=== PATIENT | female | born 1990 | race Caucasian/White ===

== ENCOUNTER 2020-09-26 14:27 | Outpatient (REF) | payer BC, SELFPAY ==
[2020-09-26 16:34] LABS: MANUAL DIFF FLAG NO
[2020-09-26 16:39] LABS: Basophils Absolute Auto 0.1 X10*3/uL (0.0-0.2); Basophils Percent Auto 0.7 % (0-2); Eosinophils Absolute Auto 0.2 X10*3/uL (0.0-0.4); Eosinophils Percent Auto 2.3 % (0-4); Hematocrit 43.6 % (37-47); Hemoglobin 14.7 g/dl (12.0-16.0); Imm Gran Abs Auto 0.03 X10*3/uL (0.00-0.03); Imm Gran Pct Auto 0.3 % (0.0-0.4); Lymphocytes Absolute Auto 2.9 X10*3/uL (1.2-4.9); Lymphocytes Percent Auto 33.6 % (20-40); Mean Corpuscular HGB Conc 33.7 g/dl (31.0-35.0); Mean Corpuscular Hemoglobin 30.8 pg (27.0-33.0); Mean Corpuscular Volume 91.4 fL (80-98); Mean Platelet Volume 9.5 fL (9.4-12.3); Monocytes Absolute Auto 0.5 X10*3/uL (0.1-1.2); Neutrophils Absolute Auto 4.9 X10*3/uL (2.0-8.3); Neutrophils Percent Auto 57.1 % (45-73); Platelet Count 324 X10*3/uL (160-400); Red Blood Count 4.77 X10*6/uL (4.20-5.50); Red Cell Distribution Width 12.3 % (11.0-16.0); White Blood Count 8.6 X10*3/uL (4.8-10.8)
[2020-09-26 17:07] LABS: Alanine Aminotransferase 19 U/L (0-31); Albumin Level 4.8 g/dL (3.5-5.0); Alkaline Phosphatase 79 U/L (39-117); Anion Gap 14 (12-20); Aspartate Amino Transferase 17 U/L (5-31); Bilirubin Total 0.3 mg/dL (0.0-1.0); Blood Urea Nitrogen 9 mg/dL (9-16); Calcium 9.5 mg/dL (8.4-10.2); Carbon Dioxide 26 mmol/L (22-29); Chloride 105 mmol/L (96-108); Cholesterol 156 mg/dL; Estimated Glomerular Filt Rate > 60; Glucose Random 77 mg/dL (60-115); HDL Cholesterol 47 mg/dL; LDL Cholesterol Calculated 84 mg/dl; Potassium 4.6 mmol/L (3.3-5.1); Sodium 140 mmol/L (135-145); Total Protein 7.6 g/dL (6.5-8.0); Triglycerides 128 mg/dL
[2020-09-26 17:27] LABS: Thyroid Stimulating Hormone 3.23 uIU/mL (0.32-4.0); Vitamin D 25-OH Total 15.9 ng/mL (>30)
== END 2020-09-26 14:28 | disposition home or self-care (01) ==
LOC: HO.HMGCLDS 14:27
PROVIDERS: PCP Internal Medicine; Visit Provider Psychiatry & Neurology Psychiatry
DX: Z79.899 Other long term (current) drug therapy (principal)
CPT/HCPCS: 36415; 80053; 80061; 82306; 84443; 85025

== ENCOUNTER 2020-10-03 12:04 | Emergency (ER) | payer BC, SELFPAY ==
--- NOTE | ~2020-10-03 | XR_ITS ---
EXAMINATION: XR CHEST CLINICAL INFORMATION: Chest pain COMPARISON: Chest radiographs 04/07/2016, 08/05/2013 TECHNIQUE: 2 views of the chest were obtained. FINDINGS: The lungs are clear. There is no pneumothorax, pleural reaction, infiltrate, or effusion. The heart is normal in size and the hilar and mediastinal contours are normal. No acute bony abnormality. No free air beneath the diaphragms or subcutaneous emphysema. XR/XR chest 2V IMPRESSION: Unremarkable examination.
--- NOTE | 2020-10-03 12:07 | ECG_ITS ---
Test Reason : CHEST PAIN Blood Pressure : / mmHG Vent. Rate : 079 BPM Atrial Rate : 079 BPM P-R Int : 136 ms QRS Dur : 080 ms QT Int : 398 ms P-R-T Axes : 059 062 053 degrees QTc Int : 456 ms Normal sinus rhythm with sinus arrhythmia Normal ECG When compared with ECG of 27-JUL-2019 13:44, No significant change was found Referred By: Generic ED Physician Electronically Signed By:JOSE ORONA MD
[2020-10-03 13:08] VITALS: BP 120/62; PULSE 67; RESP 18; TEMP 36.9; O2SAT 97; BMI 33.3
[2020-10-03 14:58] LABS: MANUAL DIFF FLAG NO
[2020-10-03 14:59] LABS: Basophils Absolute Auto 0.1 X10*3/uL (0.0-0.2); Basophils Percent Auto 0.5 % (0-2); Eosinophils Absolute Auto 0.2 X10*3/uL (0.0-0.4); Eosinophils Percent Auto 1.8 % (0-4); Hematocrit 42.2 % (37-47); Hemoglobin 14.2 g/dl (12.0-16.0); Imm Gran Abs Auto 0.02 X10*3/uL (0.00-0.03); Imm Gran Pct Auto 0.2 % (0.0-0.4); Mean Corpuscular HGB Conc 33.6 g/dl (31.0-35.0); Mean Corpuscular Hemoglobin 30.6 pg (27.0-33.0); Mean Corpuscular Volume 90.9 fL (80-98); Mean Platelet Volume 8.9 fL (9.4-12.3); Monocytes Absolute Auto 0.6 X10*3/uL (0.1-1.2); Monocytes Percent Auto 5.9 % (2-11); Neutrophils Absolute Auto 5.5 X10*3/uL (2.0-8.3); Neutrophils Percent Auto 59.6 % (45-73); Platelet Count 308 X10*3/uL (160-400); Red Blood Count 4.64 X10*6/uL (4.20-5.50); Red Cell Distribution Width 12.4 % (11.0-16.0); White Blood Count 9.3 X10*3/uL (4.8-10.8)
[2020-10-03 15:19] LABS: Anion Gap 13 (12-20); Blood Urea Nitrogen 8 mg/dL (9-16); Calcium 9.3 mg/dL (8.4-10.2); Carbon Dioxide 27 mmol/L (22-29); Chloride 106 mmol/L (96-108); Creatinine Clr Calc Pharmacy 116.9; Estimated Glomerular Filt Rate > 60; Glucose Random 83 mg/dL (60-115); Potassium 4.6 mmol/L (3.3-5.1); Sodium 141 mmol/L (135-145)
[2020-10-03 15:26] LABS: Troponin-I High Sensitivity < 3.5 ng/L (<3.5-17.0)
[2020-10-03 16:39] VITALS: BP 130/74; PULSE 66; RESP 20; O2SAT 99
--- NOTE | 2020-10-03 17:12 | ED_ITS ---
HPI - Chest Pain General Chief Complaint: Chest Pain Stated Complaint: chest pain Time Seen by Provider: 10/03/20 13:04 Source: patient Mode of arrival: ambulatory Limitations: no limitations History of Present Illness HPI narrative: 30-year-old female with a past medical history of auto immune deficiency syndrome, alopecia, shingles, hypertension, PTSD, depression and anxiety presenting to the ED with complaints of chest tightness with associated nausea that started approximately 09:00 while she was at work at [employer] sitting at her desk. Reports that she has been stressed out a little more than lately. Denies any SI/HI/auditory visualizations thoughts of self-injury. 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 Denies any other symptoms complaints or concerns at this time. Patient denies any drug usage including cocaine. MD complaint: chest discomfort Onset (ago): hour(s) (Started at 09:00 this morning while she was at work) Timing of current episode: constant and still present Prior episodes: No Onset: during rest Pain location: substernal and left chest Pain radiation: left arm Quality: tightness Relieving factors: nothing Exacerbating factors: nothing Associated symptoms: nausea Treatment prior to arrival: none Risk Factors Coronary artery disease risk factors: none Thoracic aortic dissection risk factors: none Related Data On Oral Contraceptives: Yes (On the Nexplanon) Previous Rx's Medication Instructions Recorded diazepam [Valium] 5 mg PO TID PRN #14 tab 10/03/20 naproxen 500 mg PO BID PRN #10 tab 10/03/20 Allergies Allergy/AdvReac Type Severity Reaction Status Date / Time mold Allergy Unknown UNKNOWN Verified 10/03/20 13:08 pollen extracts [POLLEN] Allergy Unknown UNKNOWN Verified 10/03/20 13:08 DANDER Allergy Unknown UNKNOWN Uncoded 02/04/20 16:33 DUST Allergy Unknown unknown Uncoded 02/04/20 16:33 Review of Systems Review of Systems: Constitutional : No Weight loss, No Fever, No Chills, No Night Sweats, No Fatigue, No Malaise ENT/Mouth : No Hearing loss, No Ear Pain, No Nasal Congestion, No Sinus Pain, No Hoarseness, No sore throat, No Rhinorrhea, No Swallowing Difficulty Eyes: No Eye Pain, No Swelling, No Redness, No Foreign Body, No Discharge, No Vision Changes Cardiovascular : Positive chest pain, No SOB, no Dyspnea on Exertion, No Orthopnea, No Edema, No extremity swelling, No Palpitations Respiratory : No Cough, No Sputum, No Wheezing, No Dyspnea Gastrointestinal : Positive Nausea, No Vomiting, No Diarrhea, No abdominal Pain, No Hematochezia, No Melena Genitourinary : No irregular bleeding, No Dysuria, No Urinary Frequency, No Hematuria, No Urinary Incontinence, No Urgency, No Flank Pain, No Urinary Flow Changes, No Hesitancy Musculoskeletal : No joint pain, No Myalgias, No Joint Swelling Skin : No Skin Lesions, No rash Neuro : Positive paresthesia to left arm, No Weakness, No Numbness, No Loss of Consciousness, No Dizziness, No Headache Psych : Positive anxiety, No Panic, No Depression, No SI/HI/AH/VH Heme/Lymph: No Bruising, No Bleeding,No Lymphadenopathy Endocrine : No Polyuria, No Polydipsia, No Temperature Intolerance Yes all other systems are reviewed and are negative [facility] Past Medical History Attestation statement: The following information was validated with the patient. Medical History Alopecia Anxiety Autoimmune deficiency syndrome Depression Fractured coccyx HTN (hypertension) Patient denies medical problems Pneumonia PTSD (post-traumatic stress disorder) Shingles Social History Social History Alcohol intake: never Smoking Status: Current every day smoker Use of substances other than those prescribed or required for medical reasons: No Substance Use Type: Marijuana Advance Directives: No Advance Directives Information Provided: Yes Patient : No Physical Exam Vital Signs: Vital Signs: Last Vital Signs Temp 98.5 F 10/03/20 13:08 Pulse 66 10/03/20 16:39 Resp 20 10/03/20 16:39 BP 130/74 10/03/20 16:39 Pulse Ox 99 10/03/20 16:39 Body Mass Index 33.3 vital signs have been reviewed as normal and appeared to be correct. Blood pressure normal. Heart rate normal. Respiration rate normal. Temperature normal. Oxygen saturation normal. Appearance: Alert. Oriented X3. No acute distress. Head: Normal external exam. Normocephalic. Atraumatic. No Mitchell signs noted. No raccoon eyes noted Eyes: PERRLA. EOMI. Conjunctiva and sclera normal. Eyelids normal. ENT: EAC normal. TM's Normal. Pharynx normal. Uvula midline. Moist mucous membranes. No trismus noted. No drooling noted. No muffled voice noted. Neck: Normal inspection. Neck supple. FROM. No adenopathy. Thyroid Normal. No meningeal signs. No neck mass noted. CVS: Normal heart rate and rhythm. Heart sound normal. No murmurs noted. Pulses normal throughout. Respiratory: No respiratory distress. Painless inspiration. Breath sounds normal. No wheezes/rales/rhonchi noted. Chest nontender. No accessory muscle usage noted or decreased air movement noted. Abdomen: Soft and nontender. Bowel sounds normal in all 4 quadrants. No distention noted. No organomegaly noted. No visible injury noted. Back: No CVA tenderness. Full range of motion noted. Skin: Skin warm and dry. Normal skin color. Normal skin turgor. No rashes/lesions/lacerations noted. Extremities: No lower extremity edema. Extremities exhibit normal range of motion. Extremities nontender. Neuro: Oriented X 3. No motor deficit. No sensory deficit. Reflexes normal. Course Course Course Narrative: 30-year-old female with a past medical history of auto immune deficiency syndrome, alopecia, shingles, hypertension, PTSD, depression and anxiety presenting to the ED with complaints of chest tightness with associated nausea that started approximately 09:00 while she was at work at [employer] sitting at her desk. Reports that she has been stressed out a little more than lately. Denies any SI/HI/auditory visualizations thoughts of self-injury. - labs obtained and all within normal limits including troponin. Chest x-ray within normal limits no acute processes noted. EKG is normal sinus rhythm with sinus arrhythmia with ventricular rate of 79 with normal OR interval normal QRS duration normal QT/QTC interval. No acute ischemic changes are noted. Similar compared to prior EKG on 07/27/2019. - patient most likely anxiety/atypical chest pain due to recent stressors and she works at [employer]. Perc negative. No family history of sudden CO or before the age of 40 or 50. - will DC home with symptomatic treatment instructions return if any new or worsening symptoms to follow up with primary care provider. Patient understands agrees with this plan. MDM - Chest Pain Medical Records Data Attestation: I reviewed the patient's medical records. Lab Data Attestation: I reviewed the patient's lab results. Result diagrams: 10/03/20 14:52 10/03/20 14:52 Labs: Lab Results 10/03/20 10/03/20 10/03/20 Range/Units 14:52 14:52 14:52 WBC 9.3 (4.8-10.8) X10*3/uL RBC 4.64 (4.20-5.50) X10*6/uL Hgb 14.2 (12.0-16.0) g/dl Hct 42.2 (37-47) % MCV 90.9 (80-98) fL MCH 30.6 (27.0-33.0) pg MCHC 33.6 (31.0-35.0) g/dl RDW 12.4 (11.0-16.0) % Plt Count 308 (160-400) X10*3/uL MPV 8.9 L (9.4-12.3) fL Immature Gran % (Auto) 0.2 (0.0-0.4) % Neut % (Auto) 59.6 (45-73) % Lymph % (Auto) 32.0 (20-40) % [place] % (Auto) 5.9 (2-11) % Eos % (Auto) 1.8 (0-4) % Baso % (Auto) 0.5 (0-2) % Lymph # (Auto) 3.0 (1.2-4.9) X10*3/uL [place] # (Auto) 0.6 (0.1-1.2) X10*3/uL Eos # (Auto) 0.2 (0.0-0.4) X10*3/uL Baso # (Auto) 0.1 (0.0-0.2) X10*3/uL Abs Immat Gran (auto) 0.02 (0.00-0.03) X10*3/uL Absolute Neuts (auto) 5.5 (2.0-8.3) X10*3/uL Absolute Nucleated RBC 0.000 (0.0-0.012) X10*3/uL Nucleated RBC % (auto) 0.0 (0.0-0.2) /100WBC Hold Blue Top SEE NOTE Sodium 141 (135-145) mmol/L Potassium 4.6 (3.3-5.1) mmol/L Chloride 106 (96-108) mmol/L Carbon Dioxide 27 (22-29) mmol/L Anion Gap 13 (12-20) BUN 8 L (9-16) mg/dL Creatinine 0.79 (0.5-1.4) mg/dL Estim Creat Clear Calc 116.9 Estimated GFR > 60 Random Glucose 83 (60-115) mg/dL Calcium 9.3 (8.4-10.2) mg/dL Troponin I High Sens (<3.5-17.0) ng/L 10/03/20 Range/Units 14:52 WBC (4.8-10.8) X10*3/uL RBC (4.20-5.50) X10*6/uL Hgb (12.0-16.0) g/dl Hct (37-47) % MCV (80-98) fL MCH (27.0-33.0) pg MCHC (31.0-35.0) g/dl RDW (11.0-16.0) % Plt Count (160-400) X10*3/uL MPV (9.4-12.3) fL Immature Gran % (Auto) (0.0-0.4) % Neut % (Auto) (45-73) % Lymph % (Auto) (20-40) % [place] % (Auto) (2-11) % Eos % (Auto) (0-4) % Baso % (Auto) (0-2) % Lymph # (Auto) (1.2-4.9) X10*3/uL [place] # (Auto) (0.1-1.2) X10*3/uL Eos # (Auto) (0.0-0.4) X10*3/uL Baso # (Auto) (0.0-0.2) X10*3/uL Abs Immat Gran (auto) (0.00-0.03) X10*3/uL Absolute Neuts (auto) (2.0-8.3) X10*3/uL Absolute Nucleated RBC (0.0-0.012) X10*3/uL Nucleated RBC % (auto) (0.0-0.2) /100WBC Hold Blue Top Sodium (135-145) mmol/L Potassium (3.3-5.1) mmol/L Chloride (96-108) mmol/L Carbon Dioxide (22-29) mmol/L Anion Gap (12-20) BUN (9-16) mg/dL Creatinine (0.5-1.4) mg/dL Estim Creat Clear Calc Estimated GFR Random Glucose (60-115) mg/dL Calcium (8.4-10.2) mg/dL Troponin I High Sens < 3.5 (<3.5-17.0) ng/L Imaging Data Chest x-ray: Attestation: I personally reviewed and interpreted this imaging study as follows: Radiologist's impression: FINDINGS: The lungs are clear. There is no pneumothorax, pleural reaction, infiltrate, or effusion. The heart is normal in size and the hilar and mediastinal contours are normal. No acute bony abnormality. No free air beneath the diaphragms or subcutaneous emphysema. XR/XR chest 2V IMPRESSION: Unremarkable examination. ECG Data ECG #1: Attestation: I personally reviewed and interpreted this ECG as follows: ECG interpretation date: 10/03/20 ECG interpretation time: 12:30 Interpretation: EKG is normal sinus rhythm with sinus arrhythmia with ventricular rate of 79 with normal OR interval normal QRS duration normal QT/QTC interval. No acute ischemic changes are noted. Similar compared to prior EKG on 07/27/2019. Scores Heart Score History: -0- slightly suspicious ECG: -0- normal Age: -0- < or = 45 Risk factory: -0- no risk factors known Troponin: -0- < or = normal limit Score: 0 Risk: 1.7% Discharge Plan Discharge Clinical Impression: Atypical chest pain Patient Disposition: Home, Self-Care Instructions: Chest Pain (ED) Prescriptions: New naproxen 500 mg tablet 500 mg PO BID PRN (Reason: pain) Qty: 10 RF: 0 diazepam [Valium] 5 mg tablet 5 mg PO TID PRN (Reason: muscle spasm) Qty: 14 RF: 0 Referrals: Rachel Leung MD [Primary Care Provider] - 2 days Stand Alone Forms: Work/School Release Print Language: Thai
[2020-10-03 18:34] LABS: HCG Quantitative < 2 mIU/mL
== END 2020-10-03 17:29 | disposition home or self-care (01) ==
PROVIDERS: Physician Assistant Medical; Emergency Provider Emergency Medicine Emergency Medical Services; PCP Internal Medicine
DX: R07.89 Other chest pain (principal); I10 Essential (primary) hypertension; F43.10 Post-traumatic stress disorder, unspecified; F32.9 Major depressive disorder, single episode, unspecified; F41.9 Anxiety disorder, unspecified; F17.200 Nicotine dependence, unspecified, uncomplicated; F12.90 Cannabis use, unspecified, uncomplicated
CPT/HCPCS: 36415; 71046; 80048; 84484; 84702; 85025; 93005; 99283; 99284

== ENCOUNTER 2021-05-22 11:26 | Outpatient (REF) | payer BC, SELFPAY ==
[2021-05-22 12:55] LABS: Binax Internal Control QC Valid; Binax Lot number: 9864; Binax Now Covid-19 Ag Negative (Negative)
== END 2021-05-22 11:27 | disposition home or self-care (01) ==
LOC: HO.LAB 11:26
PROVIDERS: Visit Provider Internal Medicine
DX: Z20.822 Contact with and (suspected) exposure to COVID-19 (principal)
CPT/HCPCS: 36415; C9803

== ENCOUNTER 2022-05-09 08:25 | Outpatient (REF) | payer BC, SELFPAY ==
[2022-05-09 11:42] LABS: Appearance Urine Clear; Color Urine Yellow; Glucose Urine UA Negative (Negative); Leukocyte Esterase Urine Negative (Negative); Nitrite Urine Negative (Negative); Urine Blood Negative (Negative); Urine Ketones Negative (Negative); Urine Protein Negative (Neg-Trace)
[2022-05-09 11:55] LABS: Alanine Aminotransferase 28 U/L (0-31); Albumin Level 4.6 g/dL (3.5-5.0); Alkaline Phosphatase 85 U/L (39-117); Anion Gap 12 (12-20); Aspartate Amino Transferase 20 U/L (5-31); Bilirubin Total 0.5 mg/dL (0.0-1.0); Blood Urea Nitrogen 14 mg/dL (9-16); Calcium 9.6 mg/dL (8.4-10.2); Carbon Dioxide 26 mmol/L (22-29); Chloride 105 mmol/L (96-108); Cholesterol 194 mg/dL; Estimated Glomerular Filt Rate > 60; Glucose Fasting 92 mg/dL (60-99); HDL Cholesterol 39 mg/dL; LDL Cholesterol Calculated 115 mg/dl; Potassium 4.5 mmol/L (3.3-5.1); Sodium 138 mmol/L (135-145); TSH reflex Free T4 4.52 uIU/mL (0.32-4.0); Total Protein 7.2 g/dL (6.5-8.0); Triglycerides 204 mg/dL
[2022-05-09 13:16] LABS: Free T4 (Free Thyroxine) 0.79 ng/dL (0.71-1.85)
[2022-05-11 05:48] LABS: HPV mRNA E6/E7 Not Detected (Not Detected)
== END 2022-05-09 08:26 | disposition home or self-care (01) ==
LOC: HO.HMGCLDS 08:25
PROVIDERS: PCP Internal Medicine; Visit Provider Internal Medicine
DX: Z00.00 Encounter for general adult medical examination without abnormal findings (principal); Z12.4 Encounter for screening for malignant neoplasm of cervix; Z11.51 Encounter for screening for human papillomavirus (HPV); F41.9 Anxiety disorder, unspecified
CPT/HCPCS: 36415; 80053; 80061; 81003; 84439; 84443; 87624; 88142

== ENCOUNTER 2022-09-24 16:28 | Outpatient (REF) | payer BC, SELFPAY ==
[2022-09-24 19:49] LABS: Free T4 (Free Thyroxine) 0.75 ng/dL (0.71-1.85)
== END 2022-09-24 16:29 | disposition home or self-care (01) ==
LOC: HO.LAB 16:28
PROVIDERS: PCP Internal Medicine; Visit Provider Internal Medicine
DX: E03.9 Hypothyroidism, unspecified (principal)
CPT/HCPCS: 36415; 84439; 84443

== ENCOUNTER 2023-02-11 16:38 | Outpatient (REF) | payer BC, SELFPAY | END 2023-02-11 16:39 | disposition home or self-care (01) | LOC: HO.LAB 16:38 | PROVIDERS: PCP Internal Medicine; Visit Provider Internal Medicine | DX: E03.9 Hypothyroidism, unspecified (principal) | CPT/HCPCS: 36415; 84443 ==

== ENCOUNTER 2023-03-06 09:02 | Outpatient (AMB) | payer BC, SELFPAY ==
--- NOTE | 2023-03-06 11:19 | MHC.OFFWIV ---
Intake Vital Signs 03/06/23 11:21 Height 5 ft 5.5 in Weight 213 lb BMI 34.9 BP 122/80 Blood Pressure Location Lt brachial Position Sitting Pulse 76 Pulse Source Pulse Oximeter Temp 98.0 F Temp Source Temporal Artery Scan Pulse Oximetry (%) 100 Oxygen Delivery Method Room Air Intake Visit Reasons: EP Cough/Inc of urine [phone] Intake Note: Pt is here c/o having a bad cough. Pt states her cough is a lot of pressure and is making her urinate and have bowel movements on herself. Patient Tobacco Use Status: Current everyday Tobacco user Allergies mold Allergy (Unknown, Verified 03/06/23 11:20) UNKNOWN pollen extracts [POLLEN] Allergy (Unknown, Verified 03/06/23 11:20) UNKNOWN DANDER Allergy (Unknown, Uncoded 03/06/23 11:20) UNKNOWN DUST Allergy (Unknown, Uncoded 03/06/23 11:20) unknown Do you need a note to return to daycare/school/sports/work: Yes HPI EP Cough/Inc of urine [phone] HPI Details 32-year-old female patient presents today with 4 days of a severe cough. She reports her mother recently had bacterial bronchitis. She reports she is coughing up yellow sputum, which has a very foul taste. Coughing fits become so severe that she has been vomiting and or urinating herself. His fever, however has been feeling hot/cold at night. [facility] Medical History Pneumonia Fractured coccyx Alopecia PTSD (post-traumatic stress disorder) HTN (hypertension) Anxiety Depression Autoimmune deficiency syndrome Shingles Social History Household Members Other:: lives with cousin, works as [employer], Housing: Apartment Alcohol intake: never Patient Tobacco Use Status: Current everyday Tobacco user Tobacco use type: Cigarette e-Cigarette/Vaping Use: Currently Using Substance Use Type: Marijuana service: No Current occupational status: employed Cognitive needs: No Hearing needs: No Vision needs: No Review of Systems Const All systems reviewed & are unremarkable except as noted in HPI and below Physical Exam Const General: cooperative and ill appearing acutely HEENT Head: Yes normal to inspection Ears: hearing grossly normal bilaterally and TM's normal bilaterally General nose exam: Normal external nose present Face and sinus: Yes normal facial exam Mouth: Normal oral and palatal mucosa present and moist mucous membranes abnormal Throat: Yes posterior oropharynx normal Neck Neck: Yes no lymphadenopathy Resp Effort & Inspection: normal respiratory effort and Actively coughing Quality: productive Auscultation: rhonchi upper bilaterally Cardio Jugular venous distension: no JVD Palpation: normal PMI Rate: regular rate Rhythm: regular rhythm Skin General skin exam: no rashes or lesions noted Extrem General: Yes capillary refill normal and Yes no clubbing, cyanosis or edema Psych Appearance: grossly normal Mental Status: mental status grossly normal Speech and movement: Normal speech and movement present Assessment & Plan Assessment & Plan (1) Acute bronchitis: Code(s): J20.9 - Acute bronchitis, unspecified Qualifiers: Bronchitis organism: unspecified organism Qualified Code(s): J20.9 - Acute bronchitis, unspecified Plan: I am going to start patient on antibiotics, and a short dose of prednisone. We reviewed indications, use, possible side effects of medications. I also prescribed her an albuterol inhaler for any shortness of breath/wheezing. If she does not improve with treatment, or symptoms worsen/new symptoms develop, she should return to the clinic. She verbalizes understanding and agrees to plan. Work note provided. Medications: New prednisone 20 mg PO BID 3 days 6 tabs 0RF azithromycin For 250 mg dose pack: take 500 mg today (day 1), then 250 mg for 4 days (days 2-5) PO 6 tabs 0RF J20.9 - Acute bronchitis, unspecified albuterol sulfate 90 mcg/actuation 1 inh inhalation QID PRN 6.7 grams 0RF shortness of breath or wheezing J20.9 - Acute bronchitis, unspecified Coding Level of Care Code Est Pt Level 3 (09854) Diagnoses Acute bronchitis, unspecified organism J20.9 Bronchitis organism: unspecified organism
[2023-03-06 11:21] VITALS: BP 122/80; PULSE 76; TEMP 36.7; O2SAT 100; BMI 34.9
== END 2023-03-06 12:00 | disposition home or self-care (01) ==
PROVIDERS: PCP Internal Medicine; Visit Provider Nurse Practitioner Family
DX: J20.9 Acute bronchitis, unspecified (principal)
CPT/HCPCS: 99213

== ENCOUNTER 2023-03-27 12:38 | Outpatient (AMB) | payer BC, SELFPAY ==
[2023-03-27 12:42] VITALS: BP 146/96; PULSE 89; O2SAT 99; BMI 30.8
--- NOTE | 2023-03-27 12:42 | A.OFFPC_ITS ---
Vital Signs 03/27/23 12:42 03/27/23 13:30 Height 5 ft 5.5 in Weight 188 lb BMI 30.8 BP 146/96 H 120/80 Blood Pressure Location Lt brachial Rt brachial Position Sitting Sitting Pulse 89 Pulse Source Pulse Oximeter Pulse Oximetry (%) 99 Oxygen Delivery Method Room Air Intake Visit Reasons: Discomfort When Sleeping Intake Note: Pt is here today for a sick visit. Pt c/o sensation(electrical shock) that happened 4 times in the past couple of months.Pt states that it starts in her feet electrical sensation. Allergies mold Allergy (Unknown, Verified 03/27/23 12:47) UNKNOWN pollen extracts [POLLEN] Allergy (Unknown, Verified 03/27/23 12:47) UNKNOWN DANDER Allergy (Unknown, Uncoded 03/27/23 12:47) UNKNOWN DUST Allergy (Unknown, Uncoded 03/27/23 12:47) unknown Tobacco use date assessed: 03/27/23 Dental Screening Dental Screen Date: 03/27/23 Did you have a dental visit in the last 12 months?: Yes Did you have a dental problem in the last 6 months where you did not have access to dental care?: No Was dental information given to patient?: Patient has dentist HPI Discomfort When Sleeping HPI Details Pt c/o electic shock like sensation when lying down relieved by kicking/moving in the bed, 2 episodes in the last month. Patient has been under lot of stress, because her car broke and has financial difficulties. Pt has been taking Fluoxetine for 6 months and follows up with psychiatrist and therapist. She denies insomnia, change in appetite. 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 [facility] Medical History Pneumonia Fractured coccyx Alopecia PTSD (post-traumatic stress disorder) HTN (hypertension) Anxiety Depression Autoimmune deficiency syndrome Shingles Family History Father Mental health disorder Mother Mental health disorder Maternal Grandmother Bone cancer Social History Household Members Other:: lives with cousin, works as [employer], Housing: Apartment Alcohol intake: never Patient Tobacco Use Status: Current everyday Tobacco user Tobacco use type: Cigarette e-Cigarette/Vaping Use: Currently Using Substance Use Type: Marijuana service: No Current occupational status: employed Cognitive needs: No Hearing needs: No Vision needs: No Questionnaire PHQ-9 Over the last 2 weeks, how often have you been bothered by any of the following problems? 29095 - PHQ-9 Billing: Patient declined-do not bill Source: Developed by Drs. Asif Aguilar, Tanika Rendon, Javed Iniguez and colleagues, with an educational hamida from [employer]. Thrive Questionnaire Date Thrive assessed: 03/27/23 I am a: Patient What is your living situation today?: I choose not to answer this question Within the past 12 months, did the food you bought not last and you didn't have the money to get more?: I choose not to answer this question Within the past 12 months, did you worry whether your food would run out before you got money to buy more?: I choose not to answer this question Do you have trouble paying for medicines?: I choose not to answer this question Do you have trouble getting transportation to medical appointments?: I choose not to answer this question Do you have trouble paying your heating and electricity bill?: I choose not to answer this question Do you have trouble taking care of your child, family member or friend?: I choose not to answer this question Do you have trouble with day-to-day activities such as bathing, preparing meals, shopping, managing finances, etc.?: I choose not to answer this question Are you currently unemployed and looking for a job?: I choose not to answer this question Are you interested in more education?: I choose not to answer this question Currently or been in a relationship where the following occur: I choose not to answer this question AUDIT C Alcohol Use Questionnaire (AUDIT-C) 1. How often do you have a drink containing alcohol?: Monthly or less 2. How many drinks containing alcohol do you have on a typical day when you are drinking?: 1 or 2 3. How often do you have six or more drinks on one occasion?: Never Total Score: 1 JOHNSON-7 AMB Questionnaire JOHNSON-7 Date JOHNSON - 7 assessed: 03/27/23 Source: Developed by Drs. Asif Aguilar, Tanika Rendon, Javed Iniguez and colleagues, with an educational hamida from [employer]. JOHNSON-7 Assessment Billing JOHNSON-7 Assessment Tool: pt declined-do not bill Review of Systems Const All systems reviewed & are unremarkable except as noted in HPI and below Reports no additional complaints Eyes Reports no additional complaints ENT Reports no additional complaints Card Reports no additional complaints Resp Reports no additional complaints GI Reports no additional complaints Reports no additional complaints Physical exam (Primary Care) Vital Signs: Last Vital Signs Pulse 89 03/27/23 12:42 BP 120/80 03/27/23 13:30 Pulse Ox 99 03/27/23 12:42 Oxygen Delivery Method Room Air 03/27/23 12:42 BMI result Body Mass Index 30.8 Tobacco/Smoking Status: Tobacco use Status Tobacco use date assessed 03/27/23 03/27/23 12:51 Patient Tobacco Use Status Current everyday Tobacco 03/27/23 12:51 Tobacco use type Cigarette 03/27/23 12:51 e-Cigarette/Vaping Use Currently Using 03/27/23 12:51 Thrive Assessment: Date of Thrive Assessment Date Thrive assessed 03/27/23 03/27/23 15:03 Currently or been in a relationship where the following occur: I choose not to answer this question Const General: no acute distress HENMT Head: Yes normal to inspection Mouth: Normal oral and palatal mucosa present Eyes General: appearance normal, both eyes and all related structures Resp Effort & Inspection: normal respiratory effort Auscultation: clear to auscultation bilaterally Cardio Rhythm: regular rhythm Heart sounds: S1 normal heart sound present and S2 normal heart sound present GI Inspection: Yes normal to inspection Palpation (GI): Soft to palpation Neuro Cranial nerves: Yes CN's II-XII intact bilaterally Cognition (Neuro): normal cognition Gait exam (Neuro): Normal gait present Motor exam (neuro): 5/5 motor strength present throughout Romberg Test: Negative Assessment and Plan Assessment & Plan (1) Annual physical exam: Code(s): Z00.00 - Encounter for general adult medical examination without abnormal findings (2) Anxiety: Code(s): F41.9 - Anxiety disorder, unspecified Plan: Stress management and mindfulness exercises discussed with the patient. She will follow-up with a counselor and psychiatrist. Basic blood work will be obtained today Orders: Orders Complete Blood Count Auto Diff Today F41.9 - Anxiety disorder, unspecified, Z00.00 - Encounter for general adult medical examination without abnormal findings Vitamin B12 and Folate Today F41.9 - Anxiety disorder, unspecified, Z00.00 - Encounter for general adult medical examination without abnormal findings Comprehensive [place]. Panel Fast Today F41.9 - Anxiety disorder, unspecified, Z00.00 - Encounter for general adult medical examination without abnormal findings IRON PROFILE Today F41.9 - Anxiety disorder, unspecified, Z00.00 - Encounter for general adult medical examination without abnormal findings Coding Level of Care Code Est Pt Level 3 (93575) Diagnoses Annual physical exam Z00.00 Anxiety F41.9
[2023-03-27 13:30] VITALS: BP 120/80
== END 2023-03-27 15:54 | disposition home or self-care (01) ==
PROVIDERS: PCP Internal Medicine; Visit Provider Internal Medicine
DX: F41.9 Anxiety disorder, unspecified (principal)
CPT/HCPCS: 99213

== ENCOUNTER 2023-03-27 13:32 | Outpatient (REF) | payer BC, SELFPAY ==
[2023-03-27 16:09] LABS: MANUAL DIFF FLAG NO
[2023-03-27 16:19] LABS: Basophils Percent Auto 0.5 % (0-2); Eosinophils Absolute Auto 0.2 X10*3/uL (0.0-0.4); Eosinophils Percent Auto 1.8 % (0-4); Hematocrit 44.2 % (37.0-47.0); Hemoglobin 14.7 g/dl (12.0-16.0); Imm Gran Abs Auto 0.03 X10*3/uL (0.00-0.03); Imm Gran Pct Auto 0.4 % (0.0-0.4); Lymphocytes Absolute Auto 2.4 X10*3/uL (1.2-4.9); Lymphocytes Percent Auto 29.6 % (20-40); Mean Corpuscular HGB Conc 33.3 g/dl (31.0-35.0); Mean Corpuscular Hemoglobin 30.1 pg (27.0-33.0); Mean Corpuscular Volume 90.4 fL (80.0-98.0); Mean Platelet Volume 9.5 fL (9.4-12.3); Monocytes Absolute Auto 0.5 X10*3/uL (0.1-1.2); Monocytes Percent Auto 5.8 % (2-11); Neutrophils Absolute Auto 5.1 x10*3/uL (2.0-8.3); Neutrophils Percent Auto 61.9 % (45-73); Platelet Count 297 X10*3/uL (160-400); Red Blood Count 4.89 X10*6/uL (4.20-5.50); Red Cell Distribution Width 12.6 % (11.0-16.0); White Blood Count 8.2 X10*3/uL (4.8-10.8)
[2023-03-27 16:46] LABS: Alanine Aminotransferase 17 U/L (0-31); Albumin Level 4.7 g/dL (3.5-5.0); Alkaline Phosphatase 63 U/L (39-117); Anion Gap 11 (12-20); Aspartate Amino Transferase 16 U/L (5-31); Bilirubin Total 0.9 mg/dL (0.0-1.0); Blood Urea Nitrogen 7 mg/dL (9-16); Calcium 9.7 mg/dL (8.4-10.2); Carbon Dioxide 28 mmol/L (22-29); Chloride 104 mmol/L (96-108); Estimated Glomerular Filt Rate > 60; Glucose Fasting 86 mg/dL (60-99); Iron 144 mcg/dL (30-160); Percent Iron Saturation 41 % (15-50); Sodium 139 mmol/L (135-145); Total Iron Binding Capacity 347 mcg/dL (228-428); Total Protein 7.8 g/dL (6.5-8.0); Unsaturated Iron Binding 203 ug/dL
[2023-03-27 17:14] LABS: Vitamin B12 375 pg/mL (200-900)
== END 2023-03-27 13:33 | disposition home or self-care (01) ==
LOC: HO.HMGCLDS 13:32
PROVIDERS: PCP Internal Medicine; Visit Provider Internal Medicine
DX: Z00.00 Encounter for general adult medical examination without abnormal findings (principal); F41.9 Anxiety disorder, unspecified
CPT/HCPCS: 36415; 80053; 82607; 82746; 83540; 85025

== ENCOUNTER 2023-05-17 08:06 | Outpatient (AMB) | payer BC, SELFPAY ==
--- NOTE | 2023-05-17 08:07 | MHC.OFFWIV ---
Intake Vital Signs 05/17/23 08:09 Height 5 ft 5.5 in Weight 187 lb 6 oz BMI 30.7 BP 140/80 H Blood Pressure Location Rt brachial Position Sitting Pulse 78 Pulse Source Pulse Oximeter Temp 98.1 F Temp Source Oral Pulse Oximetry (%) 98 Oxygen Delivery Method Room Air Intake Visit Reasons: EP Fever, chills, sweats, Nausea (masked Intake Note: pt is here for c/o chills, fever, sweats, nausea since Patient Tobacco Use Status: Current everyday Tobacco user Allergies mold Allergy (Unknown, Verified 05/17/23 08:10) UNKNOWN pollen extracts [POLLEN] Allergy (Unknown, Verified 05/17/23 08:10) UNKNOWN DANDER Allergy (Unknown, Uncoded 03/27/23 12:47) UNKNOWN DUST Allergy (Unknown, Uncoded 03/27/23 12:47) unknown Do you need a note to return to daycare/school/sports/work: Yes HPI HPI Comments History of Present Illness Details 05-13 onset of symptoms She said + chills/subjective fever Vomit on day 1 but + nausea continual Slight watery stools No congestion, ST or ear pain Slight cough but feels due to nausea/ gagging Tried Motrin with some relief; last dose was 7:30 this am She denies sick contacts She took a covid test which was negative + slight body aches +fatigue PFSH Medical History Pneumonia Fractured coccyx Alopecia PTSD (post-traumatic stress disorder) HTN (hypertension) Anxiety Depression Autoimmune deficiency syndrome Shingles Family History Father Mental health disorder Mother Mental health disorder Maternal Grandmother Bone cancer Social History Household Members Other:: lives with cousin, works as [employer], Housing: Apartment Alcohol intake: never Patient Tobacco Use Status: Current everyday Tobacco user Tobacco use type: Cigarette e-Cigarette/Vaping Use: Currently Using Substance Use Type: Marijuana service: No Current occupational status: employed Cognitive needs: No Hearing needs: No Vision needs: No Review of Systems Const Reports body aches, Reports chills, Reports fatigue and Denies fever(s) Eyes Denies blurry vision ENT Denies dizziness, Denies otalgia, Reports nasal congestion, Denies sore throat and Denies throat swelling Card Denies chest pain, Denies syncope, Denies rapid heart rate and Denies dyspnea Resp Denies chest congestion, Reports cough and Denies dyspnea GI Denies abdominal pain, Denies melena, Denies hematochezia, Reports diarrhea, Reports nausea and Denies vomiting (one episode day 1) Denies difficulty voiding Musc Denies back pain and Reports myalgias Neuro Denies dizziness and Denies syncope Endo Reports fatigue Aller/Immun Denies throat swelling Physical Exam Vital Signs: Last Vital Signs Temp 98.1 F 05/17/23 08:09 Pulse 78 05/17/23 08:09 BP 140/80 H 05/17/23 08:09 Pulse Ox 98 05/17/23 08:09 Oxygen Delivery Method Room Air 05/17/23 08:09 BMI result Body Mass Index 30.7 General: Non-toxic, NAD. Speaking full sentences. Skin: Warm dry throughout Eye: EOMI HENT: Airway patent. Uvula midline. No pharyngeal erythema or edema. No STUDENT MINISTRIES DIRECTOR. Mucosal membranes moist Bilateral canals clear. TM non-erythematous, non-bulging. No TM perforation or hemotympanum noted. Respiratory: CTA bilaterally. No wheezes, rales or rhonchi Cardiac: RRR. No murmur Abdominal: BS present x 4. No rebound or guarding. No tenderness to palpation. No abdominal mass or distention noted MSK: Full ROM extremities. Neurology: A/O. No aphasia or facial droop. Gait without abnormality Psych: Good mood and affect Assessment & Plan Assessment & Plan (1) Gastroenteritis: Code(s): K52.9 - Noninfective gastroenteritis and colitis, unspecified Plan: Patient seen and evaluated. No acute abdomen at this time. COVID/flu/RSV ordered Rest, hydrate, bland diet Imodium as prescribed Any pain, blood, black, dizziness/presyncope, CP, SOB etc go to ED F/U with PCP work note given Patient gave verbal understanding and had no additional questions or concerns at time of discharge All questions answered Orders: Orders SARS-CoV2/FLU/RSV Today K52.9 - Noninfective gastroenteritis and colitis, unspecified Medications: New loperamide (Imodium A-D) 4mg initial dose, then 2mg after each loose BM. No more than 8mg per day 2 mg PO Q6H PRN 14 caps 0RF loose stool K52.9 - Noninfective gastroenteritis and colitis, unspecified Coding Level of Care Code Est Pt Level 3 (95223) Diagnoses Gastroenteritis K52.9
[2023-05-17 08:09] VITALS: BP 140/80; PULSE 78; TEMP 36.7; O2SAT 98; BMI 30.7
== END 2023-05-17 08:36 | disposition home or self-care (01) ==
PROVIDERS: PCP Internal Medicine; Visit Provider Physician Assistant
DX: K52.9 Noninfective gastroenteritis and colitis, unspecified (principal)
CPT/HCPCS: 99213

== ENCOUNTER 2023-05-17 12:22 | Outpatient (REF) | payer BC, SELFPAY ==
[2023-05-17 13:48] LABS: Influenza A PCR NEGATIVE (Negative); Influenza B PCR NEGATIVE (Negative); Resp Syncy Virus RNA Qual PCR NEGATIVE (Negative); SARS COV2 PCR INHOUSE NEGATIVE (Negative)
== END 2023-05-17 12:23 | disposition home or self-care (01) ==
LOC: HO.LNP 12:22
PROVIDERS: Visit Provider Physician Assistant
DX: Z11.52 Encounter for screening for COVID-19 (principal); Z20.822 Contact with and (suspected) exposure to COVID-19; K52.9 Noninfective gastroenteritis and colitis, unspecified
CPT/HCPCS: 0241U

== ENCOUNTER 2023-08-21 10:46 | Outpatient (AMB) | payer BC, SELFPAY ==
--- NOTE | 2023-08-21 10:52 | AM.OFFWIN_ITS ---
Intake Vital Signs 08/21/23 10:53 Height 5 ft 5.5 in Weight 175 lb BMI 28.7 BP 122/92 H Blood Pressure Location Lt brachial Position Sitting Pulse 69 Pulse Source Pulse Oximeter Temp 97.9 F Temp Source Temporal Artery Scan Pulse Oximetry (%) 99 Oxygen Delivery Method Room Air Intake Visit Reasons: EP nausea vomiting loose stolls (lobby) Intake Note: pt is here today for nausea vomiting loose stool started 3 days ago Patient Tobacco Use Status: Current everyday Tobacco user Allergies mold Allergy (Unknown, Verified 08/21/23 10:55) UNKNOWN pollen extracts [POLLEN] Allergy (Unknown, Verified 08/21/23 10:55) UNKNOWN DANDER Allergy (Unknown, Uncoded 03/27/23 12:47) UNKNOWN DUST Allergy (Unknown, Uncoded 03/27/23 12:47) unknown Do you need a note to return to daycare/school/sports/work: Yes HPI HPI Comments History of Present Illness Details 32 y/o female patient who presents to [facility] in clinic with c/o Loose stools, nausea and vomiting x 2 days. Has not taken any OTC medications. Denies any changes to diet. Denies fevers, or body chills. PFSH Medical History Pneumonia Fractured coccyx Alopecia PTSD (post-traumatic stress disorder) HTN (hypertension) Anxiety Depression Autoimmune deficiency syndrome Shingles Family History Father Mental health disorder Mother Mental health disorder Maternal Grandmother Bone cancer Social History Household Members Other:: lives with cousin, works as [employer], Housing: Apartment Alcohol intake: never Patient Tobacco Use Status: Current everyday Tobacco user Tobacco use type: Cigarette e-Cigarette/Vaping Use: Currently Using Substance Use Type: Marijuana service: No Current occupational status: employed Cognitive needs: No Hearing needs: No Vision needs: No Physical Exam Vital Signs: Last Vital Signs Temp 97.9 F 08/21/23 10:53 Pulse 69 08/21/23 10:53 BP 122/92 H 08/21/23 10:53 Pulse Ox 99 08/21/23 10:53 Oxygen Delivery Method Room Air 08/21/23 10:53 BMI result Body Mass Index 28.7 Const General: comfortable and no acute distress Orientation/consciousness: patient oriented x3 GI Inspection: Yes normal to inspection Palpation (GI): Soft to palpation, not firm, nontender, no guarding, not rigid, No hepatosplenomegaly present, no hernias, no masses and No Ascites present Percussion: Yes normal to percussion Auscultation: Hypoactive bowel sounds present Rectal Exam - Female: deferred Neuro General: patient oriented x3, gait normal and moves all extremities Psych Speech and movement: Normal speech and movement present Assessment & Plan Assessment & Plan (1) Nausea vomiting and diarrhea: Code(s): R11.2 - Nausea with vomiting, unspecified; R19.7 - Diarrhea, unspecified Plan: - BLAND diet - avoid Oily/greasy foods - Avoid spicy foods. - Hydrate with plenty of water, Gatorade, Gingerale. (2) Gastroenteritis: Code(s): K52.9 - Noninfective gastroenteritis and colitis, unspecified Plan: - BLAND diet - avoid Oily/greasy foods - Avoid spicy foods. - Hydrate with plenty of water, Gatorade, Gingerale. Plan - BLAND diet - avoid Oily/greasy foods - Avoid spicy foods. - Hydrate with plenty of water, Gatorade, Gingerale. Medications: New 2 ondansetron 8 mg PO Q8H 30 tabs 0RF K52.9 - Noninfective gastroenteritis and colitis, unspecified, R11.2 - Nausea with vomiting, unspecified, R19.7 - Diarrhea, unspecified Coding Level of Care Code Est Pt Level 3 (96593) Diagnoses Nausea vomiting and diarrhea R11.2; R19.7 Gastroenteritis K52.9 Time Spent (min) 15
[2023-08-21 10:53] VITALS: BP 122/92; PULSE 69; TEMP 36.6; O2SAT 99; BMI 28.7
== END 2023-08-21 12:01 | disposition home or self-care (01) ==
PROVIDERS: PCP Internal Medicine; Visit Provider Nurse Practitioner Family
DX: K52.9 Noninfective gastroenteritis and colitis, unspecified (principal)
CPT/HCPCS: 99213

== ENCOUNTER 2023-08-30 09:47 | Outpatient (AMB) | payer BC, SELFPAY ==
[2023-08-30 09:48] VITALS: BP 126/78; PULSE 73; O2SAT 98; BMI 27.9
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
== END 2023-08-30 11:48 | disposition home or self-care (01) ==
LOC: HO.HMGC 09:47
PROVIDERS: PCP Internal Medicine; Visit Provider Internal Medicine
DX: Z00.00 Encounter for general adult medical examination without abnormal findings (principal); F43.10 Post-traumatic stress disorder, unspecified; E03.9 Hypothyroidism, unspecified
CPT/HCPCS: 99395

== ENCOUNTER 2024-04-28 09:49 | Outpatient (AMB) | payer BC, SELFPAY ==
--- NOTE | 2024-04-28 10:06 | AM.OFFWIN_ITS ---
Intake Vital Signs 04/28/24 10:10 Height 5 ft 5.5 in Weight 179 lb 4 oz BMI 29.4 BP 98/66 Blood Pressure Location Rt brachial Position Sitting Respiration 12 Pulse 93 Pulse Source Pulse Oximeter Temp 97.9 F Temp Source Oral Pulse Oximetry (%) 99 Oxygen Delivery Method Room Air Intake Visit Reasons: EST/vomitting/chills/migrane Intake Note: Patient complaining of vomiting, diarrhea, sleepy excessively, migraines, chills and bodyaches since last saturday night. Patient Tobacco Use Status: Current everyday Tobacco user Allergies mold Allergy (Unknown, Verified 04/28/24 10:) UNKNOWN pollen extracts [POLLEN] Allergy (Unknown, Verified 04/28/24:) UNKNOWN DANDER Allergy (Unknown, Uncoded 04/28/24:) UNKNOWN DUST Allergy (Unknown, Uncoded 04/28/24:) unknown Medication List - Last Reconciled 04/28/24 by Miesha Ace, HALF BACKER- cholecalciferol (vitamin D3) (Vitamin D3) 10 mcg PO DAILY diazepam 5 mg PO DAILY PRN fluoxetine 40 mg PO QAM fluoxetine 10 mg PO DAILY levothyroxine 25 mcg PO DAILY Do you need a note to return to daycare/school/sports/work: Yes HPI HPI Comments History of Present Illness Details History of Present Illness The patient is a 33-year-old female presenting with gastrointestinal symptoms, specifically vomiting and diarrhea. The patient reports the onset of symptoms began on Saturday evening, experiencing significant episodes of vomiting, diarrhea, headaches, fever, and myalgia throughout the weekend. By Saturday, the symptoms persisted, particularly with nausea, chills, sweating, migraines, and decreased frequency of vomiting and diarrhea compared to earlier but were still present. The patient attempted to attend work on the preceding day but was sent home due to fever and associated symptoms. She has not taken any medication such as Tylenol for the fever or prescribed anti-nausea and anti-diarrheal medications, although a history of being advised against suppressive therapy for previous diarrhea episodes by [employer]. The patient reports experiences with coworkers having similar symptoms, indicating a potential viral outbreak. Previous travel and new dietary exposures were denied. Food seems tolerable when nausea is not severe, and the patient can retain ingested food without immediate emesis. The patient denies , regular menstrual cycles, and noted recent mild improvements in symptoms. Exam Awake alert NAD scleras nonicteric bilat TM clear bilat Nares w/ scant d/c, turbinates wNL MMM, pharynx WNL RRR LS CTAB Abd soft nontender normoactive BS Plan - For Viral Gastroenteritis: The diagnos is is supportive care including hydration with added electrolytes. I recommend oral rehydration solutions such as Gatorade or Plite for electrolyte replacement due to losses via vomiting and diarrhea. Fluo-xrk-oaesola medications like Imodium are advised for diarrhea, considering the viral, non-infectious nature of the illness. - For Nausea: Provide prescription antie metics to be taken preemptively to prevent nausea-induced dehydration. The patient is instructed that usage does not require severe symptoms to commence. - For Headaches: Suggest a regimen of Be nadryl combined with Motrin as a home remedy for relief - Work Recommendations: Provide a patien t's note for the absence due to illness. Return to work is conditionally based on 24-hour symptom resolution free of fever, vomiting, or diarrhea without medicinal intervention. - Monitoring: Patients need to ensure ad equate fluid intake and symptom monitoring, with medical attention if conditions worsen or no improvement is observed in due course. Patient was informed and verbally consented to the use of an ambient scribe for clinic note documentation during this visit. [facility] Medical History (Updated 08/30/23 @ 11:45 by Rachel Leung MD) Pneumonia Fractured coccyx Alopecia PTSD (post-traumatic stress disorder) HTN (hypertension) Anxiety Depression Autoimmune deficiency syndrome Shingles Surgical History No pertinent past surgical history Family History Father Mental health disorder Mother Mental health disorder Maternal Grandmother Bone cancer Social History Household Members Other:: lives with cousin, works as [employer], Housing: Apartment Alcohol intake: never Patient Tobacco Use Status: Current everyday Tobacco user Tobacco use type: Cigarette Cigarettes Per Day: 3 e-Cigarette/Vaping Use: Currently Using Substance Use Type: Marijuana service: No Current occupational status: employed Cognitive needs: No Hearing needs: No Vision needs: No Physical Exam Vital Signs: Last Vital Signs Temp 97.9 F 04/28/24 10:10 Pulse 93 04/28/24 10:10 Resp 12 04/28/24 10:10 BP 98/66 04/28/24 10:10 Pulse Ox 99 04/28/24 10:10 Oxygen Delivery Method Simple Mask 04/28/24 10:10 BMI result Body Mass Index 29.4 Assessment & Plan Assessment & Plan (1) Viral gastroenteritis: Code(s): A08.4 - Viral intestinal infection, unspecified Plan . Medications: New ondansetron HCl 4 mg PO Q8H 3 days PRN 15 tabs 0RF nausea and vomiting loperamide (Imodium A-D) 2 mg PO Q6H PRN 10 caps 0RF loose stool diphenhydramine HCl (Benadryl) 25 mg PO BEDTIME PRN 1 cap 0RF sleep Patient Instructions: Plan - For Viral Gastroenteritis: The diagnosis is supportive care including hydration with added electrolytes. I recommend oral rehydration solutions such as Gatorade or Plite for electrolyte replacement due to losses via vomiting and diarrhea. Rhfz-ckb-wvzukte medications like Imodium are advised for diarrhea, considering the viral, non-infectious nature of the illness. - For Nausea: Provide prescription antiemetics to be taken preemptively to prevent nausea-induced dehydration. The patient is instructed that usage does not require severe symptoms to commence. - For Headaches: Suggest a regimen of Benadryl combined with Motrin as a home remedy for relief - Work Recommendations: Provide a patient's note for the absence due to illness. Return to work is conditionally based on 24-hour symptom resolution free of fever, vomiting, or diarrhea without medicinal intervention. - Monitoring: Patients need to ensure adequate fluid intake and symptom monitoring, with medical attention if conditions worsen or no improvement is observed in due course. Coding Level of Care Code Est Pt Level 3 (62684) Diagnoses Viral gastroenteritis A08.4
[2024-04-28 10:10] VITALS: BP 98/66; PULSE 93; RESP 12; TEMP 36.6; O2SAT 99; BMI 29.4
== END 2024-04-28 10:37 | disposition home or self-care (01) ==
LOC: HO.HMCWIW 09:49
PROVIDERS: PCP Internal Medicine; Visit Provider Nurse Practitioner Family
DX: A08.4 Viral intestinal infection, unspecified (principal)

== ENCOUNTER 2024-07-01 11:19 | Outpatient (AMB) | payer BC, SELFPAY ==
[2024-07-01 11:22] VITALS: BP 110/76; PULSE 90; TEMP 36.6; O2SAT 98; BMI 31.1
--- NOTE | 2024-07-01 11:22 | AM.OFFWIN_ITS ---
Intake Vital Signs 07/01/24 11:22 Height 5 ft 5.5 in Weight 190 lb BMI 31.1 BP 110/76 Blood Pressure Location Lt brachial Position Sitting Pulse 90 Pulse Source Pulse Oximeter Temp 97.8 F Temp Source Oral Pulse Oximetry (%) 98 Intake Visit Reasons: fever/vommit/stuffy/flu like symptoms Patient Tobacco Use Status: Current everyday Tobacco user Allergies mold Allergy (Unknown, Verified 07/01/24 11:42) UNKNOWN pollen extracts [POLLEN] Allergy (Unknown, Verified 07/01/24 11:42) UNKNOWN DANDER Allergy (Unknown, Uncoded 07/01/24 11:42) UNKNOWN DUST Allergy (Unknown, Uncoded 07/01/24 11:42) unknown Medication List - Last Reconciled 07/01/24 by KATHARINE Whaley- cholecalciferol (vitamin D3) (Vitamin D3) 10 mcg PO DAILY diazepam 5 mg PO DAILY PRN fluoxetine 40 mg PO QAM fluoxetine 10 mg PO DAILY levothyroxine 25 mcg PO DAILY Do you need a note to return to daycare/school/sports/work: No HPI HPI Comments History of Present Illness Details The patient is a 33-year-old female presenting with influenza-like symptoms. These symptoms began last week, primarily characterized by nausea, vomiting, and diarrhea. She experienced significant chills, prompting her to take hot baths despite feeling cold, and reported difficulty getting out of the bathtub due to fatigue. Her symptoms worsened to include a sore throat noted for the past several days. Her illness has impacted her ability to work, requiring her to call out for the last two days. During this period, the patient did not note any blood in her vomit or stool. Despite adhering to her routine activities initially, her condition has led to pronounced fatigue and discomfort. Additionally, her menstrual period began the night prior, accompanied by severe cramping and excessive bleeding, adding to her overall malaise. The patient confirmed she has not received a flu vaccination this season or in previous years. The patient reported only minimal residual nausea but no further vomiting. She noted some relief with yzqq-vjn-sumvqxg anti-nausea medications which she already possessed. She also acknowledged using Pedialyte and staying hydrated. Physical Exam General: Awake, alert. No apparent distress Eyes: Sclera and conjunctiva clear bilaterally Nose: Nares white d/c bilat, turbinates within normal limits, no sinus tenderness with palpation bilaterally, + congestion Ears: Tympanic membranes intact and clear bilaterally Throat: Moist mucosa membrane, pharynx within normal limits Cardiovascular: Regular rate and rhythm Respiratory: Clear to auscultation bilaterally Abd soft normoactive bs x 4 , nontender Results - Swab for COVID-19, Influenza, and RSV tests ordered. Pending results. Discussion Notes I discussed with the patient the likely viral cause of her symptoms, potentially influenza, though we are awaiting confirmation from diagnostic swabs for COVID- 19, Influenza, and RSV. Should the results be consistent with the flu, I will consider prescribing antiviral medication. I stressed the importance of hydration and advised the patient to continue with current measures, including the use of ehgz-aay-cqlgqfr medication for nausea and cramps. If COVID-19 is diagnosed, management will focus on symptomatic relief, as current guidance does not support the use of Paxlovid for every case. The risks and benefits of potential antiviral treatment were discussed, along with the significance of rest and fluids. I advised the patient to monitor her symptoms and recommended a tentative return to work on Saturday, urging her to listen to her body and not [place] the recovery process. Follow-up was discussed in terms of receiving test results and making a definitive diagnosis, with an understanding that the patient should telephone if her symptoms significantly worsen or new symptoms arise. Assessment and Plan 33-year-old female with a history of men struation presenting with influenza-like symptoms. Her clinical presentation suggests a viral illness, most likely influenza, given the gastrointestinal symptoms consistent with such an infection. Other possibilities include COVID-19, though less probable, and an unlikely RSV infection. 1. Influenza due to unidentified influen za virus with other respiratory manifestations ; GAstroenteritis I suspect the patient is experiencing a viral illness, most likely influenza, a condition that often involves gastrointestinal symptoms. Pending viral testing results for COVID-19, Influenza, and RSV, which will inform further management. Begin with conservative measures: maintain hydration, consider symptomatic treatment with antivirals if Influenza is confirmed, and implement rest. If diagnosed with COVID-19, focus on supportive care, as antiviral use is not warranted without severe symptoms. Monitor symptoms and seek further medical assistance if worsens. Patient Instructions - Stay hydrated with water and electroly te solutions such as Pedialyte. - Take rest and avoid strenuous activiti es. - Use kflg-qeu-gvhbqts anti-nausea medic ations and Tylenol as needed for symptoms. - Consider using Benadryl to help with n ausea. - Monitor symptoms and seek medical help if symptoms worsen or new symptoms arise. - Await a call later in the day for diag nostic test results. - Discuss work return dates tentatively for Saturday but evaluate based on recovery progress. - Continue using heating pads and over-t he-counter medications for menstrual cramps if needed. Patient was informed and verbally consented to the use of an ambient scribe for clinic note documentation during this visit. Total time spent caring for the patient today was 30 minutes. This includes time spent before the visit reviewing the chart, time spent during the visit, and time spent after the visit on documentation, reviewing laboratory results, diagnostic imaging, medications, performing a medically necessary evaluation, counseling on diagnoses, care coordination, ordering appropriate tests, ordering appropriate medications, review of tests performed by other providers, reporting test results with the patient, communication with other healthcare providers. [facility] Medical History (Updated 07/01/24 @ 12:06 by Miesha Ace, [facility]) Alopecia Anxiety Autoimmune deficiency syndrome Depression Fractured coccyx HTN (hypertension) Pneumonia PTSD (post-traumatic stress disorder) Shingles Surgical History No pertinent past surgical history Family History Father Mental health disorder Mother Mental health disorder Maternal Grandmother Bone cancer Social History Household Members Other:: lives with cousin, works as [email or web address], Housing: Apartment Alcohol intake: never Patient Tobacco Use Status: Current everyday Tobacco user Tobacco use type: Cigarette Cigarettes Per Day: 3 e-Cigarette/Vaping Use: Currently Using Substance Use Type: Marijuana service: No Current occupational status: employed Cognitive needs: No Hearing needs: No Vision needs: No Physical Exam Vital Signs: Last Vital Signs Temp 97.8 F 07/01/24 11:22 Pulse 90 07/01/24 11:22 BP 110/76 07/01/24 11:22 Pulse Ox 98 07/01/24 11:22 BMI result Body Mass Index 31.1 Assessment & Plan Assessment & Plan (1) Flu-like symptoms: Code(s): R68.89 - Other general symptoms and signs (2) Gastroenteritis: Code(s): K52.9 - Noninfective gastroenteritis and colitis, unspecified Plan . Orders: Orders SARS-CoV2/FLU/RSV Today K52.9 - Noninfective gastroenteritis and colitis, unspecified, R68.89 - Other general symptoms and signs Coding Level of Care Code Est Pt Level 4 (37626) Diagnoses Flu-like symptoms R68.89 Gastroenteritis K52.9
--- OUTSIDE RECORDS SUMMARY | 2024-07-01 13:13 | XMS_ITS | Data Portability ---
Author Organization [facility] [address] Address [address] [place] [address] Assessment Encounter Date Assessment Date Assessment LastModified by Organization Details LastModified Time 01/22/2024 01/22/2024 Patient was seen in the office today for nausea. Reviewed history regarding recent illness, medications, symptoms, and physical exam. Studies ordered as below. Discussed plan with , who expresses understanding . Follow up as noted below. [email or web address] Not available 01/22/2024 19:58:04 Plan of Treatment Reminders Order Date Submit Date Provider Last Modified By Organization Details Last Modified Time Details Appointments None recorded . Lab None recorded . Referral None recorded . Procedures None recorded . Surgeries None recorded . Imaging None recorded . Medication Orders Zofran 4 mg tablet 024 01/23/20 [id number], [address] [facility], [place], [address], 08:08:14 Patient TargetsNo targets recorded. Patient Instructions Encounter Date Encounter Id Patient Instructions Last Modified By Organization Details Last Modified Time 01/22/2024 [id number] nausea and vomiting: care instructions Not available 01/22/2024 20:24:55 diarrhea: care instructions Not available 01/22/2024 20:24:55 gastroenteritis: care instructions Not available 01/22/2024 20:26:17 Try small amount s of clear liquids frequently. If vomiting occurs, wait 30-60 minutes before trying clear liquids again. Once you are able to tolerate clear liquids for at least 6 hours without vomiting, you can advance to a soft diet consisting of foods such as bananas, rice, applesauce, toast, crackers, and other foods rich in carbohydrates and low on fats and spices. If the diet is tolerated for 12-24 hours, you can slowly add other foods to your diet. If vomiting occurs, you should go back to clear liquids only and work your way back to a normal diet as outlined above. If much worse, you should seek treatment immediately. Take 1 OTC Immodium after each loose bowel movement. No more than 4 tablets a day. [email or web address] Not available 01/22/2024 19:58:12 Reason for Referral None Reported. Problems Name Problem SNOMED Code Status Onset Date Resolution Date Notes Provider Name and Address Organization Details Recorded Time Hypertensive disorder 13149880 Active Nimo Millan null, [place] - [facility] 4 20:02:00 Depressive disorder 31738548 Active Nimo Millan null, [place] - [facility] 4 20:02:07 Anxiety 04977245 Active Nimo Millan null, [place] - [facility] 4 20:02:15 Posttraumatic stress disorder 52896853 Active Nimotj Millan null, [place] - [facility] 4 20:02:25 Acute gastroenteritis 41868476 Active 2023 Mercedez Burks NP [address] , [place], [address] [facility] [place] - [facility] 4 20:23:19 Problem Notes None recorded. Medical Equipment None Reported. Allergies No known drug allergies Medications Name Sig Start Date Stop Date Status Note LastModified by Organization Details LastModified Time fluoxetine 40 mg capsule TAKE 1 CAPSULE BY MOUTH EVERY DAY IN THE MORNING active Not Available Not Available No t Available loperamide 2 mg capsule PLEASE SEE ATTACHED FOR DETAILED DIRECTION S 01/21 completed Not Available Not Available Not Available azithromyci n 250 mg tablet TAKE 2 TABLETS BY MOUTH TODAY, THEN TAKE 1 TABLET DAILY FOR 4 DAYS DIRECTED 01/21 completed Not Available Not Available Not Available prednisone 20 mg tablet TAKE 1 TABLET BY MOUTH TWICE A DAY FOR 3 DAYS 01/21 completed Not Available Not Available Not Available ondansetron 8 mg disintegrat ing tablet TAKE 1 TABLET ORALLY EVERY 8 HOURS 01/21 completed Not Available Not Available Not Available levothyroxi ne 25 mcg tablet TAKE 1 TABLET BY MOUTH EVERY DAY active Not Available Not Available No t Available Zofran 4 mg tablet Take 2 tablets twice a day by oral route as needed for 3 days, for gastroent eritis. 2023 active Not Available Not Available Not Avai lable Vitamin D3 10 mcg (400 unit) tablet TAKE 1 TABLET BY MOUTH EVERY DAY active Not Available Not Available No t Available fluoxetine 10 mg capsule TAKE 1 CAPSULE BY MOUTH ONCE A DAY FOR TOTAL DAILY DOSE OF FLUOXETIN E 50 MG active Not Available Not Available No t Available diazepam 5 mg tablet TAKE 1 TABLET BY MOUTH ONCE A DAY NEEDED ANXIETY active Not Available Not Available No t Available Vitals Date Recorded Body height Body weight Oxygen saturation Oxygen saturation in Arterial blood by Pulse oximetry Heart rate Respiratory rate Body temperature Systolic blood pressure Diastolic blood pressure Provider Name and Address Organization Details Last Updated DateTime 4 166.37 cm 65346.4 4 g 99 % 99 % 65 /min 16 /min 99 [degF] 158 mm[Hg] 94 mm[Hg] Nimo CONNOLLY - [facility] 4 19:59:53 Social History None recorded. Functional Status None recorded. Mental Status None recorded. Family History Nothing Reported. Medical History No medical history recorded. Gynecological History Statement/Question Response Date of LMP 01/12/2024 Is there any chance of ? No LMP Definite Obstetrics History GPAL:G 0 P 0 0 0 0 Immunizations Vaccine Type Date Status Note Provider Nam e and Address Organization Details Recorded Time COVID-19, mRNA, LNP-S, PF, 30 mcg/0.3 mL dose 05/22/2021 completed [facility] Saul [facility] 01/22/2024 20:00:41 Past Encounters Encounter ID Performer Location Encounter Start Date Encounter Closed Date Diagnosis/Indication Diagnosis SNOMED-CT Code Diagnosis ICD10 Code Diagnosis Note [id number] [address] [address] 03/06/2021 08:27:16 03/06/2021 09:42:07 [id number] [address] [address] [address] 01/21/2021 10:18:25 01/21/2021 13:22:29 [id number] [address] [place] [address] 05/27/2021 08:02:23 05/27/2021 08:57:51 [id number] Mercedez BurksMEET [address] [address] 01/22/2024 18:06:36 01/22/2024 20:31:02 Acute gastroenteritis 78705819 K52.9 If your doctor prescribed antibiotic s, take them as directed. Do not stop taking them just because you feel better. You need to take the full course of antibiotic s.Drink plenty of fluids to prevent dehydratio n. Choose water and other clear liquids until you feel better. If you have kidney, heart, or liver disease and have to limit fluids, talk with your doctor before you increase your fluid intake.Dri nk fluids slowly, in frequent, small amounts, because drinking too much too fast can cause vomiting.W hen you feel like eating, start with small amounts. Avoid spicy, hot, or high-fat foods, and do not drink alcohol or caffeine for a day or two. Do not drink milk or eat ice cream until you are feeling better.How to prevent food poisoningK eep your hands and your kitchen clean. Wash cutting boards and countertop s often with hot, soapy water. Consider using disinfecta nt sprays or wipes on your counters.K eep hot foods hot and cold foods cold.Do not eat meats, dressings, salads, or other foods that have been kept at room temperatur e for more than 2 hours.Use a thermomete r to check your refrigerat or. It should be between 34? ? ?F and 40? ? ?F.Defrost meats in the refrigerat or or microwave, not on the kitchen counter.Co ok meat until it is well done.Do not eat raw eggs or uncooked sauces made with raw eggs.Do not take chances. If food looks or tastes spoiled, throw it out.Be extra careful when you travel. In some places, you may not want to drink water from the tap (including ice cubes) or eat any raw foods. Health Concerns Section Related Observation LastModified by Organization Amrit morales LastModified Time None Recorded Concern Status LastModified by Organization Details LastModified Time None Recorded Advance Directives Directive None Recorded Payers Encounter Date Sequence Insurance Name Policy Number Policy Edwards Covered Member ID Edwards Member ID Guarantor Name 01/21/2021 1 [place] [id number] Cindy L Rivera [id number] Cindy Rivera 03/06/2021 1 [place] [id number] Cindy L Rivera [id number] Cindy Rivera 05/27/2021 1 [place] [id number] Cindy L Rivera [id number] Cindy Rivera 01/22/2024 1 [place] [id number] Cindy L Rivera [id number] Cindy Rivera Notes Date Note Type Note Provider Name and Address Organization Details Recorded Time 01/22/2024 text/html 33 YOF presents with N/V/D. mild and cramping . had a burger from a vending machine at her job and leftover chicken from friend's house before the onset of the sx. vomiting since 1am today, diarrhea started 01/20/24 , denies blood in the stool . mucus, foul odor . Pt admits to have had alcohol (about 6 beers ) as well prior to sx onset. has been trying to stay hydrated with coffee and water. Mercedez Burks NP [address] [place] [place], [address], [place] - [facility] 01/23/2024 08:36:45 OBGyn Episode No OBEpisode recorded.
== END 2024-07-01 11:52 | disposition home or self-care (01) ==
LOC: HO.HMCWIW 11:19
PROVIDERS: PCP Internal Medicine; Visit Provider Nurse Practitioner Family
DX: R68.89 Other general symptoms and signs (principal); K52.9 Noninfective gastroenteritis and colitis, unspecified

== ENCOUNTER 2024-07-01 11:19 | Outpatient (REF) | payer BC, SELFPAY ==
[2024-07-01 16:12] LABS: Influenza A PCR NEGATIVE (Negative); Influenza B PCR POSITIVE (Negative); Resp Syncy Virus RNA Qual PCR NEGATIVE (Negative); SARS COV2 PCR INHOUSE NEGATIVE (Negative)
== END 2024-07-01 11:20 | disposition home or self-care (01) ==
LOC: HO.LNP 11:19
PROVIDERS: PCP Internal Medicine; Visit Provider Nurse Practitioner Family
DX: K52.9 Noninfective gastroenteritis and colitis, unspecified (principal); R68.89 Other general symptoms and signs
CPT/HCPCS: 0241U

== ENCOUNTER 2024-08-19 08:23 | Outpatient (AMB) | payer BC, SELFPAY ==
--- NOTE | 2024-08-19 08:28 | AM.OFFWIN_ITS ---
Intake Vital Signs 08/19/24 08:29 Weight 199 lb BP 132/80 Blood Pressure Location Rt brachial Position Sitting Pulse 80 Pulse Source Pulse Oximeter Temp 98.5 F Temp Source Oral Pulse Oximetry (%) 97 Oxygen Delivery Method Room Air Intake Visit Reasons: EP chest congestion, sinus congestion Intake Note: Patient here for chest congestion, cough and sinus congestion which started a couple of days ago. She states she was recently around a couple of people who have covid. Patient Tobacco Use Status: Current everyday Tobacco user Allergies mold Allergy (Unknown, Verified 08/19/24 08:30) UNKNOWN pollen extracts [POLLEN] Allergy (Unknown, Verified 08/19/24 08:30) UNKNOWN DANDER Allergy (Unknown, Uncoded 08/19/24 08:30) UNKNOWN DUST Allergy (Unknown, Uncoded 08/19/24 08:30) unknown Do you need a note to return to daycare/school/sports/work: Yes HPI HPI Comments History of Present Illness Details History - The patient is a 33-year-old female pr esenting with feelings of shortness of breath and coughing, with symptoms persisting for approximately two to three days. The patient reports recent exposure to COVID-19, as individuals she interacted with, including her mother and coworkers, tested positive, leading to a probable suspicion of COVID-19 infection. Although the patient reports no fever, ongoing use of Motrin could obscure its detection. Additionally, the patient smokes and vapes, with a medical history notable for recurrent pneumonia and bronchitis. She has previous experience using an inhaler, though no wheezing was detected during this visit, suggesting the inhaler for bronchospasm control could be beneficial. With sinus congestion ongoing and a history of frequent childhood ear infections, there is a concern for possible acute otitis media development. She notes emotional distress with possible headache influence, but it's unclear if related. Additionally, it's advised to monitor for ear related pain as the congestion appears not yet to have led to active infection. Physical Exam General: Cooperative, healthy appearing, comfortable and no acute distress Orientation/consciousness: Patient oriented x3 Limitations: No limitations Head: Normal to inspection Ears: Hearing grossly normal bilaterally, external ears normal, but one ear looks like it's getting backed up and could get infected Nose: Normal external nose present, Normal nares present and No nasal discharge present Face and sinus: Normal facial exam and Yes sinuses nontender Mouth: Normal oral and palatal mucosa present and moist mucous membranes Throat: Yes tonsils normal, Yes uvula midline. Posterior oropharynx erythema Eyes: Appearance normal, both eyes and all related structures Neck: Normal visual inspection Respiratory: Clear to auscultation bilaterally. Normal respiratory effort, able to speak in complete sentences, Actively coughing, no respiratory distress, not tachypneic, no tripod positioning and no use of accessory muscles Cardiovascular: Regular rate and rhythm. Normal S1 and S2 Skin: No rashes or lesions noted Neuro: Patient oriented x3 Extremities: Normal to inspection and Yes no clubbing, cyanosis or edema PFSH Medical History (Updated 08/19/24 @ 08:58 by Tamara Rausch PA-C) Pneumonia Fractured coccyx Alopecia PTSD (post-traumatic stress disorder) HTN (hypertension) Anxiety Depression Autoimmune deficiency syndrome Shingles Surgical History No pertinent past surgical history Family History Father Mental health disorder Mother Mental health disorder Maternal Grandmother Bone cancer Social History Household Members Other:: lives with cousin, works as [employer], Housing: Apartment Alcohol intake: never Patient Tobacco Use Status: Current everyday Tobacco user Tobacco use type: Cigarette Cigarettes Per Day: 3 e-Cigarette/Vaping Use: Currently Using Substance Use Type: Marijuana service: No Current occupational status: employed Cognitive needs: No Hearing needs: No Vision needs: No Review of Systems Const All systems reviewed & are unremarkable except as noted in HPI and below Physical Exam Vital Signs: Last Vital Signs Temp 98.5 F 08/19/24 08:29 Pulse 80 08/19/24 08:29 BP 132/80 08/19/24 08:29 Pulse Ox 97 08/19/24 08:29 Oxygen Delivery Method Room Air 08/19/24 08:29 Assessment & Plan Assessment & Plan (1) Lower respiratory infection (e.g., bronchitis, pneumonia, pneumonitis, pulmonitis): Code(s): J22 - Unspecified acute lower respiratory infection Plan: VSS, pt well appearing and PE remarkable for what looks to be a developing OM in her right ear. Amoxicillin was prescribed to be retrieved if ear pain began, recognizing the potential development of acute otitis media. During the visit, measures were established to address the suspected COVID-19 infection. The patient underwent testing, and pending positive results, the consideration of Paxlovid was discussed, contingent on effective use within a 72-hour window. The adverse effects of this antiviral were highlighted. An Albuterol inhaler was provided to manage the patient's bronchospasms with specific usage instructions. Flonase nasal spray and an allergy pill were advised to manage sinus congestion and impede ear infection progression. Tessalon Perles were prescribed to facilitate sleep by reducing night-time coughing. These interventions aimed to manage symptoms effectively, with the patient consenting to the approach. C ommunication was emphasized for any change in symptoms or conditions, ensuring timely modifications to the presented plan. A work note was furnished as per the patient's request. Patient was informed and verbally consented to the use of an ambient scribe for clinic note documentation during this visit Orders: Orders SARS-CoV2/FLU/RSV Today R09.89 - Other specified symptoms and signs involving the circulatory and respiratory systems Medications: New albuterol sulfate 90 mcg/actuation 2 puffs inhalation Q6H PRN 8.5 grams 0RF shortness of breath or wheezing or cough amoxicillin 875 mg PO Q12H 10 tabs 0RF benzonatate 200 mg PO BEDTIME PRN 10 caps 0RF cough Coding Level of Care Code Est Pt Level 3 (67461) Diagnoses Lower respiratory infection (e.g., bronchitis, pneumonia, pneumonitis, pulmonitis) J22
[2024-08-19 08:29] VITALS: BP 132/80; PULSE 80; TEMP 36.9; O2SAT 97
== END 2024-08-19 09:12 | disposition home or self-care (01) ==
PROVIDERS: PCP Internal Medicine; Visit Provider Physician Assistant
DX: J22 Unspecified acute lower respiratory infection (principal)

== ENCOUNTER 2024-08-19 08:23 | Outpatient (REF) | payer BC, SELFPAY ==
[2024-08-19 11:42] LABS: Influenza A PCR NEGATIVE (Negative); Influenza B PCR NEGATIVE (Negative); Resp Syncy Virus RNA Qual PCR NEGATIVE (Negative); SARS COV2 PCR INHOUSE NEGATIVE (Negative)
--- OUTSIDE RECORDS SUMMARY | 2024-08-19 12:23 | XMS_ITS | Data Portability ---
Author Organization [facility] [address] Address [address] [place] [address] Assessment Encounter Date Assessment Date Assessment LastModified by Organization Details LastModified Time 01/22/2024 01/22/2024 Patient was seen in the office today for nausea. Reviewed history regarding recent illness, medications, symptoms, and physical exam. Studies ordered as below. Discussed plan with , who expresses understanding . Follow up as noted below. [email or web address] Not available 01/22/2024 19:58:04 Plan of Treatment Reminders Order Date Submit Date Provider Last Modified By Organization Details Last Modified Time Details Appointments None recorded . Lab None recorded . Referral None recorded . Procedures None recorded . Surgeries None recorded . Imaging None recorded . Medication Orders Zofran 4 mg tablet 024 01/23/20 [id number], [address] [facility], [place], [address], 08:08:14 Patient TargetsNo targets recorded. Patient Instructions Encounter Date Encounter Id Patient Instructions Last Modified By Organization Details Last Modified Time 01/22/2024 [id number] nausea and vomiting: care instructions Not available [...] No more than 4 tablets a day. [email or web address] Not available 01/22/2024 19:58:12 Reason for Referral None Reported. Problems Name Problem SNOMED Code Status Onset Date Resolution Date Notes Provider Name and Address Organization Details Recorded Time Hypertensive disorder 57444508 Active Nimo Millan null, [place] - [facility] 4 20:02:00 Depressive disorder 64674324 Active Nimo Millan null, [place] - [facility] 4 20:02:07 Anxiety 31409336 Active Nimo Millan null, [place] - [facility] 4 20:02:15 Posttraumatic stress disorder 08418012 Active Nimotj Millan null, [place] - [facility] 4 20:02:25 Acute gastroenteritis 55065503 Active 2023 Mercedez Burks NP [address] [place] , [place], [address] [facility] - [facility] 4 20:23:19 Problem [...] Details Last Updated DateTime 4 166.37 cm 00583.4 4 g 99 % 99 % 65 [...] SNOMED-CT Code Diagnosis ICD10 Code Diagnosis Note [id number] [address] [address] 03/06/2021 08:27:16 03/06/2021 09:42:07 [id number] [facility] [address] [address] 01/21/2021 10:18:25 01/21/2021 13:22:29 [id number] [address] [place] [address] 05/27/2021 08:02:23 05/27/2021 08:57:51 [id number] Mercedez BurksMEET [address] [address] 01/22/2024 18:06:36 01/22/2024 20:31:02 Acute gastroenteritis 80127211 K52.9 If your doctor prescribed antibiotic s, [...] 01/21/2021 1 [place] [id number] Cindy L Rivera [id number] 133 Cindy Rivera 03/06/2021 1 [place] [id number] Cindy L Rivera [id number] 133 Cindy Rivera 05/27/2021 1 [place] [id number] Cindy L Rivera [id number] 133 Cindy Rivera 01/22/2024 1 [place] [id number] Cindy L Rivera [id number] 133 Cindy Rivera Notes Date Note Type Note [...] coffee and water. Mercedez Burks NP [address] [place], [address], [place] - [facility] 01/23/2024 08:36:45 OBGyn Episode No OBEpisode recorded.
== END 2024-08-19 08:24 | disposition home or self-care (01) ==
LOC: HO.LNP 08:23
PROVIDERS: PCP Internal Medicine; Visit Provider Physician Assistant
DX: J22 Unspecified acute lower respiratory infection (principal); R09.89 Other specified symptoms and signs involving the circulatory and respiratory systems
CPT/HCPCS: 0241U